=== PATIENT | female | born 1965 | race Caucasian/White ===

== ENCOUNTER 2017-01-24 16:34 | Emergency (ER) | payer OTHER ==
--- NOTE | 2017-01-24 18:18 | RAD ---
LEFT HAND THREE VIEWS: Date: 01-24-17 Comparison: None. History: Joint pain. FINDINGS: No displaced fracture or evidence of dislocation is seen. No radiopaque foreign body or subcutaneous gas. IMPRESSION: No acute findings. POS: [facility]
== END 2017-01-24 17:20 | disposition home or self-care (01) ==
LOC: MADERS 16:34
DX: S63.602A Unspecified sprain of left thumb, initial encounter (principal); Z87.891 Personal history of nicotine dependence; X50.1XXA Overexertion from prolonged static or awkward postures, initial encounter

== ENCOUNTER 2021-06-22 13:09 | Outpatient (CLI) | payer OTHER ==
[2021-06-22 13:50] LABS: SARS-CoV-2 NAA Rapid Test Not Detected (NotDetected)
== END 2021-06-22 13:10 | disposition home or self-care (01) ==
LOC: MADLAB 13:09
PROVIDERS: ATTEND Family Medicine
DX: Z20.822 Contact with and (suspected) exposure to COVID-19 (principal)
CPT/HCPCS: U0002

== ENCOUNTER 2024-01-16 06:54 | Outpatient (CLI) | payer SELFPAY ==
[2024-01-16 07:13] LABS: #Basophils 0.1 thou/uL (0.0-0.2); #Eosinphils 0.6 thou/uL (0.0-0.7); #Monocytes 0.7 thou/uL (0.11-0.59); #Neutrophils 4.1 thou/uL (1.40-6.50); %Eosinophils 7.3 % (0.0-10.0); %Lymphocytes 35.2 % (21.0-51.0); %Monocytes 8.3 % (0.0-10.0); %Neutrophils 48.2 % (42.0-75.0); Hematocrit 48.6 % (36.0-47.0); Hemoglobin 15.4 g/dL (12.0-16.0); Mean Corpuscular HGB CONC 31.7 g/dL (32.0-36.0); Mean Corpuscular Hemoglobin 29.3 pg (27.0-31.0); Mean Corpuscular Volume 92.3 fl (78.0-98.0); Mean Platelet Volume 7.1 fL (7.4-10.4); Platelet Count 286 10x3/uL (130-400); RBC Distribution Width 12.2 % (11.5-14.5); Red Blood Cell (RBC) Count 5.27 mill/uL (4.20-5.40); White Blood Cell (WBC) Count 8.6 10x3/uL (4.8-10.8)
[2024-01-16 07:31] LABS: ALT (SGPT) 77 U/L (8-55); AST (SGOT) 44 U/L (5-34); Albumin 4.1 g/dL (3.5-5.0); Alkaline Phosphatase 69 U/L (40-110); Anion Gap 15 mmol/L (10-20); BUN (Urea Nitrogen) 15 mg/dL (9.8-20.1); Bilirubin, Total 0.9 mg/dL (0.2-1.2); Calc. Creatinine Clearance 0 mL/min (70-130); Calcium 9.4 mg/dL (7.8-10.44); Carbon Dioxide 23 mmol/L (22-29); Cardiac Risk 6.4 (Less than 4.5); Chloride 102 mmol/L (98-107); Cholesterol 238 mg/dl (< 200 Desired); Estimated GFR 84; Globulin 3.1 g/dL (2.4-3.5); Glucose 130 mg/dL (70-105); HDL Cholesterol 37 mg/dL (>60 Neg Risk); Potassium 4.2 mmol/L (3.5-5.1); Protein, Total 7.2 g/dL (6.0-8.3); Sodium 136 mmol/L (136-145); Triglycerides 526 mg/dL (Less than 150)
[2024-01-16 12:45] LABS: Hemoglobin A1c 5.4 % (4.0-6.0)
== END 2024-01-16 06:55 | disposition home or self-care (01) ==
LOC: MADLAB 06:54
DX: Z00.00 Encounter for general adult medical examination without abnormal findings (principal)
CPT/HCPCS: 36415; 80053; 80061; 83036; 85025